=== PATIENT | male | born 1990 | race African-American/Black ===

== ENCOUNTER 2019-09-13 11:57 | Emergency (ER) | payer BC ==
[~2019-09-13] VITALS: Ht 190.5 cm; Wt 63.6 kg
[2019-09-13 12:26] VITALS: BP 141/90
--- NOTE | 2019-09-13 12:42 | PHYS DOC ---
Past Medical History Past Medical History: No Pertinent History Past Surgical History: No Surgical History Smoking Status: Never Smoker Alcohol Use: Occasionally Adult General Chief Complaint Chief Complaint: SEXUALLY TRANSMITTED DISEASE HPI HPI Patient is a 29 year old male who presents with penile discharge that began a couple days ago after having unprotected sex. Would like to be treated for STDs. Review of Systems Review of Systems Constitutional: Denies fever or chills [] : Reports penile discharge. Denies dysuria or hematuria [] Musculoskeletal: Denies back pain or joint pain [] Integument: Denies rash or skin lesions [] Neurologic: Denies headache, focal weakness or sensory changes [] All other systems were reviewed and found to be within normal limits, except as documented in this note. Allergies Allergies Allergies Coded Allergies Type Severity Reaction Last Updated Verified No Known Drug Allergies 09/13/19 No Physical Exam Physical Exam Constitutional: Well developed, well nourished, no acute distress, non-toxic appearance. [] Abdomen: Bowel sounds normal, soft, no tenderness, no masses, no pulsatile masses. [] Skin: Warm, dry, no erythema, no rash. [] Back: No tenderness, no CVA tenderness. [] Extremities: No tenderness, no cyanosis, no clubbing, ROM intact, no edema. [] Neurologic: Alert and oriented X 3, normal motor function, normal sensory function, no focal deficits noted. [] Psychologic: Affect normal, judgement normal, mood normal. [] Current Patient Data Vital Signs Vital Signs Date Time Temp Pulse Resp B/P (MAP) Pulse Ox O2 Delivery O2 Flow Rate FiO2 09/13/19 12:26 98.6 66 18 141/90 (107) 95 Room Air 98.6 EKG EKG [] Radiology/Procedures Radiology/Procedures [] Course & Med Decision Making Course & Med Decision Making Pertinent Labs and Imaging studies reviewed. (See chart for details) This is a 29-year-old male patient presenting to the ED today with concern for STDs. Patient was treated and discharged. Dragon Disclaimer Dragon Disclaimer This electronic medical record was generated, in whole or in part, using a voice recognition dictation system. Departure Departure Impression: Primary Impression: Concern about STD in male without diagnosis Disposition: 01 HOME, SELF-CARE Condition: STABLE Patient Instructions: Sexually Transmitted Disease Additional Instructions: You were treated for STDs please use protection at all times and follow up with your doctor in 1 week, let your partners know you were treated for STDs and ask them to seek treatment too POLLO HERNANDEZ APRN Sep 13, 2019 12:41
[2019-09-13] MEDS ORDERED: AZITHROMYCIN 250 MG TABLET. ONE (12:44)
[2019-09-13] MEDS ORDERED: AZITHROMYCIN 250 MG TABLET. PO ONE (12:45)
[2019-09-13] MEDS ORDERED: cefTRIAXone IM 250 MG VIAL IM ONE ×2 (12:45)
[2019-09-13] MEDS ORDERED: metroNIDAZOLE 500 MG TABLET PO ONE (12:45)
== END 2019-09-13 13:14 | disposition home or self-care (01) ==
LOC: ER 11:57
DX: A64 Unspecified sexually transmitted disease (principal)
CPT/HCPCS: 96372; 99283; J0696